=== PATIENT | female | born 1990 | race Caucasian/White ===

== ENCOUNTER 2016-07-10 08:09 | Emergency (ER) | payer SELFPAY ==
[2016-07-10 08:13] VITALS: BP 101/68; BMI 24.2
--- NOTE | 2016-07-10 09:36 | DR.GENAD ---
HPI - PCP Primary Care Physician: none - HPI Comment HPI Comment: WORSE TODAY. POST NASAL DRAINAGE PRESENT. - Complaint/Symptoms Chief Complaint Doctors Comments: HEADACHE, CONGESTION, SORE THROAT AND FEVER TIMES 2 DAYS. Chief Complaint:: " i have a really bad headache and feel very week and tired" - Nurses notes reviewed Nurses Notes Review: Yes - Source History Provided: Patient - Mode of Arrival Mode of Arrival: Ambulatory - Timing Onset of Chief Complaint: 07/09/16 Came on: Suddenly - Duration Duration: Constant Duration: Days - Severity Severity: Moderate PMH - PMH Past Medical History: No Past Surgical History: No - Family History History of Family Medical Conditions: Yes Family Medical History: Diabetes Mellitus - Social History Does patient currently use any type of tobacco product: No Have you used tobacco products in the last 12 months: No Type of Tobacco Use: None Does any household member use tobacco: No Alcohol Use: None Do you use any recreational Drugs:: No Lives With: Family Lives Where: Home - infectious screening In the last 2 months have you had wt loss of >10#?: NO Have you had fever, night sweats or hemotysis?: No Have you traveled outside the country in the last 6 months?: No Isolation: Standard ROS - Review of Systems Constitutional: Fever, Loss of Appetite. negative: Chills, Weakness, Fatigue Eyes: No Symptoms Reported. negative: Eye Pain, Discharge ENTM: Nose Discharge, Nose Congestion, Throat Pain. negative: Ear Pain Respiratoy: No Symptoms Reported. negative: Productive Cough, Non-Productive Cough, Short of Breath, Wheezing, Hemoptysis Cardiovascular: No Symptoms Reported. negative: Chest Pain Gastrointestinal/Abdominal: No Symptoms Reported. negative: Abdominal Pain, Diarrhea, Nausea, Vomiting Genitourinary: No Symptoms Reported. negative: Dysuria, Frequency, Hematuria Neurological: No Symptoms Reported, Headache, Weakness, Dizziness Musculoskeletal: Muscle Pain Integumentary: No Symptoms Reported Hematologic/Lymphatic: No Symptoms Reported Endocrine: No Symptoms Reported All Other Systems: Reviewed and Negative PE - Vital Signs Vitals: Temperature 99 F Pulse Rate 90 Respiratory Rate 18 Blood Pressure [Left Arm] 118/64 Blood Pressure [Right Arm] 99/62 Blood Pressure 101/68 O2 Sat by Pulse Oximetry 99 - General Limitations: No Limitations General Appearance: Alert - Head Head Exam: Normal Inspection - Eyes Eye exam: Normal Appearance - ENT ENT Exam: Normal Exam External Ear Exam: Normal External Inspection TM/Canal Exam: Bilateral Normal Nose Exam: Sinus Tenderness Mouth Exam: Normal Inspection Throat Exam: Tonsillar Erythema - Neck Neck Exam: Trachea Midline. negative: Tenderness, Meningismus, Lymphadenopathy - Chest Chest Inspection: Symmetric Chest Wall Rise - Respiratory Respiratory Exam: Normal Lung Sounds Bilat Respiratory Exam: Bilateral Clear to Auscultation - Cardiovascular Cardiovascular Exam: Regular Rate, Normal Rhythm, Normal Heart Sounds - Abdominal Exam Abdominal Exam: Normal Bowel Sounds, Soft. negative: Tenderness - Extremities Extremities Exam: Normal Inspection - Back Back Exam: Normal Inspection - Neurologic Neurological Exam: Alert, Oriented X3 - Skin Skin Exam: Normal Color MDM - Differential Diagnosis Differential Diagnosis: SINUSITIS, STREP THROAT, SINUS HEADACHE. Course - Treatment Treatment: SEE ORDERS - Education/Counseling Education/Counseling: Patient, Education Educated On: Diagnosis, Needs for Follow Up ROR - Labs Reviewed Laboratory Results Reviewed?: Yes Laboratory: Streptococcus Screen Positive (NEGATIVE) A 07/10/16 09:20 - Diagnosis Discharge Problem: Sinus headache, Strep throat Sinusitis, acute Qualifiers: Sinusitis location: unspecified location Recurrence: not specified as recurrent Qualified Code(s): J01.90 - Acute sinusitis, unspecified - Discharge Plan Disposition: HOME, SELF-CARE Condition: Stable Prescriptions: Azithromycin [Zithromax Z-Patrick 5-day] 1 dose PO DAILY #6 tab Cetirizine HCl [Zyrtec Tab 10 mg] 10 mg PO DAILY #10 tab Ibuprofen [MOTRIN TAB 600 MG *] 600 mg PO TID PRN #20 tab PRN Reason: Pain/Inflammation - Follow ups/Referrals Follow ups/Referrals: N[facility],None [Primary Care Provider] - 3 days - Instructions Instructions: Strep Throat, [id number], Sinusitis, Adult, [id number] Additional Instructions: RETURN TO ED IF WORSE.
[2016-07-10] MEDS ORDERED: BICILLIN L-A IM ONE ×2 (09:51→10:09)
[2016-07-10] MEDS ORDERED: TORADOL 60 MG VIAL IM ONE (09:51)
[2016-07-10] MEDS ORDERED: TORADOL 60 MG VIAL ONE (10:08)
== END 2016-07-10 10:35 | disposition home or self-care (01) ==
LOC: ER 08:09
DX: J01.80 Other acute sinusitis (principal); J02.0 Streptococcal pharyngitis; R51 Headache
CPT/HCPCS: 87880; 96372; 99282; 99283; J0570; J1885